=== PATIENT | male | born 1930 | race Caucasian/White ===

== ENCOUNTER 2018-09-30 20:25 | Inpatient (IN) ==
[2018-09-30] MEDS ORDERED: Isovue-370 500 ML BOTTLE IVP ONE (22:10)
[2018-09-30] MEDS ORDERED: 0.9 % Sodium Chloride 1,000 ML IVC SCH (22:15)
[2018-09-30 22:26] LABS: Bilirubin,Urine Large (Negative); Blood,Urine Negative (Negative); Clarity,Urine Clear (Clear); Color,Urine Dark Yellow (Yellow); Glucose,Urine (UA) Normal (Normal); Ketones,Urine Negative (Negative); Leukocyte Esterase,Urine Trace (Negative); Nitrite,Urine Positive (Negative); Protein,Urine Negative (Neg-Trace); Specific Gravity,Urine 1.013 (1.010-1.025)
[2018-09-30 22:27] LABS: Bacteria,Urine None Seen per hpf (None-Few); Hyaline Casts,Urine None Seen per lpf (None-Few); RBC,Urine 0-3 per hpf (0-3); Squamous Epithelial Cell,Urine Few per lpf (None-Few); WBC,Urine 0-3 per hpf (0-3)
[2018-09-30 22:53] LABS: Basophils # 0.1 K/mcL (0.0-0.2); Basophils % 0.7 %; Eosinophils # 0.4 K/mcL (0.0-0.6); Eosinophils % 3.7 %; Hematocrit 38.9 % (37.5-50.1); Hemoglobin 12.4 g/dL (12.9-16.9); Immature Granulocytes % 0.8 % (0-4); Lymphocytes # 1.9 K/mcL (0.6-4.6); Lymphocytes % 19.9 %; Mean Corpuscular HGB Conc 31.9 g/dL (31.6-35.5); Mean Corpuscular Hemoglobin 28.5 pg (28.0-33.3); Mean Corpuscular Volume 89.4 fL (83.0-100.0); Mean Platelet Volume 11.1 fL (9.4-12.4); Monocytes # 0.7 K/mcL (0.0-1.3); Monocytes % 7.2 %; Neutrophils # 6.4 K/mcL (1.6-8.9); Platelet Count 290 K/mcL (140-400); Red Blood Count 4.35 M/mcL (4.19-5.50); Red Cell Distribution Width 17.7 % (11.5-14.5); Segmented Neutrophils % 67.7 %; White Blood Count 9.5 K/mcL (4.3-11.1)
[2018-09-30 23:00] LABS: INR 1.2; Prothrombin Time 13.2 Seconds (9.4-12.1)
[2018-09-30 23:08] LABS: Albumin 3.6 g/dL (3.5-5.7); Albumin/Globulin Ratio 1.5 (1.1-2.2); Bilirubin,Direct 7.8 mg/dL (0.0-0.2); Bilirubin,Indirect 4.8 mg/dL (0.0-1.2); Bilirubin,Total 12.6 mg/dL (0.3-1.0); Calcium 8.9 mg/dL (8.6-10.3); Globulin 2.4 g/dL (2.4-3.5); Potassium 3.2 mEq/L (3.5-5.1)
[2018-10-01] MEDS ORDERED: Ondansetron 4 MG/2 ML VIAL IVP PRN (03:41)
[2018-10-01] MEDS ORDERED: Ipratropium/Albuterol Neb 3 ML IH PRN (03:43)
[2018-10-01] MEDS ORDERED: *HR* Dextrose 50 % in Water (Syg) 50 ML SYRINGE IVP PRN (03:43)
[2018-10-01] MEDS ORDERED: Dextrose Gel 15 GM/37.5 ML TUBE PO PRN ×2 (03:43)
[2018-10-01] MEDS ORDERED: Ringers Solution, Lactated 1,000 ML IVC SCH (03:45)
[2018-10-01 04:47] LABS: Magnesium 2.1 mg/dL (1.6-2.6)
[2018-10-01 04:48] LABS: Albumin 3.3 g/dL (3.5-5.7); Albumin/Globulin Ratio 1.4 (1.1-2.2); Bilirubin,Direct 8.3 mg/dL (0.0-0.2); Bilirubin,Indirect 5.1 mg/dL (0.0-1.2); Bilirubin,Total 13.4 mg/dL (0.3-1.0); Calcium 8.8 mg/dL (8.6-10.3); Globulin 2.4 g/dL (2.4-3.5); Potassium 3.1 mEq/L (3.5-5.1); Total Protein 5.7 g/dL (6.4-8.9)
[2018-10-01 05:10] LABS: Hepatitis B Surface Antigen Nonreactive (Nonreactive)
[2018-10-01 05:38] LABS: Hepatitis C Virus Antibody Nonreactive (Nonreactive)
[2018-10-01 05:39] LABS: Hepatitis B Core IgM Nonreactive (Nonreactive)
[2018-10-01 05:40] LABS: Hepatitis A Antibody IgM Nonreactive (Nonreactive)
[2018-10-01] MEDS ORDERED: Potassium Chloride Elixir 20 MEQ/15 ML UDC PO ONE (05:52)
[2018-10-01] MEDS ORDERED: *HR* Heparin 5,000 UNIT/ML VIAL SQ SCH (06:00)
[2018-10-01] MEDS: Insulin LISPRO 300 UNITS/3 ML VIAL SQ SCH ×3 (06:20→18:10)
[2018-10-01 08:14] LABS: Estimated Average Glucose 160 mg/dl
[2018-10-01] MEDS: Budesonide/Formoterol 160/4.5 1 PUFF INH IH SCH ×2 (08:14→20:12)
[2018-10-01] MEDS: Tiotropium 18 MCG inhalation IH SCH (08:21)
[2018-10-01] MEDS: Cholecalciferol (D-3) 1,000 UNIT (25MCG) TABLET PO SCH (08:31)
[2018-10-01] MEDS: Loratadine 10 MG TABLET PO SCH (08:31)
[2018-10-01] MEDS: Pyridoxine (B-6) 50 MG TABLET PO SCH (08:31)
[2018-10-01] MEDS: Multivit/Ca/Min/Fe/FA 1 TAB TABLET PO SCH (08:31)
[2018-10-01] MEDS: Fluticasone Propionate Nasal 50 MCG/SPRAY BOTTLE NS SCH (08:32)
[2018-10-01] MEDS: D5% in Lactated Ringers 1,000 ML IVC SCH (09:13)
[2018-10-01] MEDS ORDERED: Gadolinium Contrast Agent (WT Based) IV PRN (09:17)
[2018-10-02] MEDS: Insulin LISPRO 300 UNITS/3 ML VIAL SQ SCH ×4 (01:50→17:13)
[2018-10-02] MEDS: D5% in Lactated Ringers 1,000 ML IVC SCH (06:03)
[2018-10-02] MEDS: Budesonide/Formoterol 160/4.5 1 PUFF INH IH SCH ×2 (07:20→23:57)
[2018-10-02] MEDS: Tiotropium 18 MCG inhalation IH SCH (07:20)
[2018-10-02] MEDS: Fluticasone Propionate Nasal 50 MCG/SPRAY BOTTLE NS SCH (08:11)
[2018-10-02] MEDS: Loratadine 10 MG TABLET PO SCH (08:11)
[2018-10-02] MEDS: Pyridoxine (B-6) 50 MG TABLET PO SCH (08:15)
[2018-10-02] MEDS: Multivit/Ca/Min/Fe/FA 1 TAB TABLET PO SCH (08:15)
[2018-10-02] MEDS: Cholecalciferol (D-3) 1,000 UNIT (25MCG) TABLET PO SCH (08:15)
[2018-10-02 08:20] LABS: Alanine Aminotransferase 263 Units/L (7-52); Albumin/Globulin Ratio 1.3 (1.1-2.2); Alkaline Phosphatase 801 Units/L (34-104); Aspartate Amino Transferase 301 Units/L (13-39); BUN/Creatinine Ratio 14 (6-26); Bilirubin,Total 14.8 mg/dL (0.3-1.0); Blood Urea Nitrogen 16 mg/dL (8-23); Calcium 8.6 mg/dL (8.6-10.3); Carbon Dioxide 30 mEq/L (23-29); Chloride 99 mEq/L (98-107); Globulin 2.4 g/dL (2.4-3.5); Glucose 146 mg/dL (70-105); Magnesium 2.3 mg/dL (1.6-2.6); Osmolality,Calculated 298 (280-300); Phosphorous 2.1 mg/dL (2.7-4.5); Potassium 3.5 mEq/L (3.5-5.1); Sodium 142 mEq/L (136-145); Total Protein 5.4 g/dL (6.4-8.9); eGFR For African Americans > 60 (> 60); eGFR For Non-African Americans 59 (> 60)
[2018-10-02] MEDS ORDERED: *HR* Propofol 200 MG/20 ML VIAL IVP ONE ×2 (12:30→21:01)
[2018-10-02] MEDS ORDERED: *HR* FentaNYL (PF) 100 MCG/2 ML VIAL ONE ×2 (12:30→21:01)
[2018-10-02] MEDS ORDERED: EPHEDrine 50 MG/ML VIAL ONE (12:57)
[2018-10-02] MEDS: Ringers Solution, Lactated 1,000 ML IVC SCH (13:07)
[2018-10-02] MEDS ORDERED: Isovue-370 500 ML BOTTLE PO ONE (16:55)
[2018-10-02] MEDS ORDERED: CefOXitin 1,000 MG VIAL ONE (18:34)
[2018-10-02] MEDS ORDERED: *HR* Cisatracurium 10 MG/5 ML VIAL IV ONE ×2 (20:57→21:59)
[2018-10-02] MEDS ORDERED: Lidocaine -MPF 2% 2 ML VIAL ONE (21:02)
[2018-10-02] MEDS ORDERED: *HR* Succinylcholine 200 MG/10 ML VIAL IVP ONE (21:02)
[2018-10-02] MEDS ORDERED: *HR* PHENYLEPHRINE 1,000 MCG/10 ML SYRINGE IVP ONE (21:23)
[2018-10-02] MEDS ORDERED: cefOXitin 2,000 MG in Water for inj. (sterile) 20 ML IVP ONE (21:30)
[2018-10-02] MEDS ORDERED: *HR* Phenylephrine 10 MG/ML VIAL ONE (23:31)
[2018-10-03] MEDS ORDERED: cefOXitin 2,000 MG in Water for inj. (sterile) 20 ML IVP ONE (00:15)
[2018-10-03] MEDS ORDERED: Albumin Human 5% 25.0 GM/500 ML VIAL ONE (00:17)
[2018-10-03] MEDS ORDERED: CefOXitin 2,000 MG VIAL ONE (00:18)
[2018-10-03] MEDS ORDERED: CefOXitin 1,000 MG VIAL ONE (00:20)
[2018-10-03] MEDS ORDERED: Dexamethasone 4 MG/ML VIAL ONE (00:29)
[2018-10-03] MEDS ORDERED: Ondansetron 4 MG/2 ML VIAL ONE (00:29)
[2018-10-03] MEDS ORDERED: Artificial Tears SOLN 15 ML BOTTLE BOTH EYES PRN (01:19)
[2018-10-03] MEDS ORDERED: 0.9 % Sodium Chloride 1,000 ML IVC ONE (01:22)
[2018-10-03] MEDS: FentaNYL (PF) 1,000 MCG in 0.9 % Sodium Chloride 80 ML IVC SCH ×4 (02:00→16:05)
[2018-10-03 02:29] LABS: Basophils # 0.1 K/mcL (0.0-0.2); Basophils % 0.3 %; Eosinophils % 0.2 %; Hematocrit 31.7 % (37.5-50.1); Immature Granulocytes % 0.7 % (0-4); Lymphocytes # 0.6 K/mcL (0.6-4.6); Lymphocytes % 3.5 %; Mean Corpuscular HGB Conc 31.2 g/dL (31.6-35.5); Mean Corpuscular Hemoglobin 29.4 pg (28.0-33.3); Mean Corpuscular Volume 94.1 fL (83.0-100.0); Mean Platelet Volume 11.6 fL (9.4-12.4); Monocytes # 0.9 K/mcL (0.0-1.3); Monocytes % 5.1 %; Neutrophils # 16.6 K/mcL (1.6-8.9); Platelet Count 298 K/mcL (140-400); Red Blood Count 3.37 M/mcL (4.19-5.50); Red Cell Distribution Width 18.2 % (11.5-14.5); Segmented Neutrophils % 90.2 %
[2018-10-03 02:31] LABS: Hemoglobin 9.9 g/dL (12.9-16.9); White Blood Count 18.4 K/mcL (4.3-11.1)
[2018-10-03 02:37] LABS: ABG Base Excess 4 mEq/L (-2 to 3); ABG HCO3 29 mEq/L (21-27); ABG Oxygen Saturation 100 % (95-98); ABG PCO2 41 mmHg (35-45); ABG PH 7.45 pH Units (7.32-7.45); ABG PO2 515 mmHg (85-104); ABG TCO2 30 mEq/L (20-26); Blood Gas VT 500 cc
[2018-10-03 02:42] LABS: INR 1.2
[2018-10-03 02:44] LABS: Activated Partial Thrombo Time 33.8 Seconds (26.0-36.0)
[2018-10-03 02:49] LABS: Alanine Aminotransferase 309 Units/L (7-52); Albumin 3.2 g/dL (3.5-5.7); Albumin/Globulin Ratio 1.7 (1.1-2.2); Alkaline Phosphatase 637 Units/L (34-104); Aspartate Amino Transferase 368 Units/L (13-39); BUN/Creatinine Ratio 11 (6-26); Bilirubin,Direct 8.7 mg/dL (0.0-0.2); Bilirubin,Indirect 4.9 mg/dL (0.0-1.2); Bilirubin,Total 13.6 mg/dL (0.3-1.0); Blood Urea Nitrogen 14 mg/dL (8-23); Calcium 8.3 mg/dL (8.6-10.3); Carbon Dioxide 26 mEq/L (23-29); Chloride 104 mEq/L (98-107); Globulin 1.9 g/dL (2.4-3.5); Glucose 215 mg/dL (70-105); Osmolality,Calculated 295 (280-300); Potassium 3.5 mEq/L (3.5-5.1); Sodium 139 mEq/L (136-145); Total Protein 5.1 g/dL (6.4-8.9); eGFR For African Americans > 60 (> 60); eGFR For Non-African Americans 51 (> 60)
[2018-10-03 02:50] LABS: BUN/Creatinine Ratio 10 (6-26); Blood Urea Nitrogen 14 mg/dL (8-23); Calcium 8.4 mg/dL (8.6-10.3); Carbon Dioxide 27 mEq/L (23-29); Chloride 103 mEq/L (98-107); Glucose 215 mg/dL (70-105); Magnesium 1.9 mg/dL (1.6-2.6); Osmolality,Calculated 295 (280-300); Phosphorous 2.3 mg/dL (2.7-4.5); Potassium 3.5 mEq/L (3.5-5.1); Sodium 139 mEq/L (136-145); eGFR For African Americans > 60 (> 60); eGFR For Non-African Americans 50 (> 60)
[2018-10-03] MEDS: D5% in Lactated Ringers 1,000 ML IVC SCH (03:00)
[2018-10-03] MEDS: Norepinephrine 4 MG in D5% in Water 250 ML IVC SCH ×3 (03:07→18:43)
[2018-10-03] MEDS: 0.9 % Sodium Chloride 1,000 ML IVC SCH ×3 (03:21→22:20)
[2018-10-03] MEDS: Insulin LISPRO 300 UNITS/3 ML VIAL SQ SCH ×5 (03:21→21:12)
[2018-10-03] MEDS: Artificial Tears SOLN 15 ML BOTTLE BOTH EYES SCH ×5 (03:22→21:04)
[2018-10-03] MEDS: Budesonide/Formoterol 160/4.5 1 PUFF INH IH SCH ×2 (07:43→20:11)
[2018-10-03] MEDS: Tiotropium 18 MCG inhalation IH SCH (07:45)
[2018-10-03] MEDS: Piperacillin/Tazobactam 3.375 GM in 0.9 % Sodium Chloride Mini Bag 100 ML IVPB SCH ×2 (09:17→16:55)
[2018-10-03] MEDS: Chlorhexidine Rinse 15 ML MOUTHWASH MM SCH ×2 (09:18→21:12)
[2018-10-03] MEDS: Pantoprazole 40 MG VIAL IVP SCH (09:18)
[2018-10-03] MEDS: Multivit/Ca/Min/Fe/FA 1 TAB TABLET PO SCH (09:25)
[2018-10-03] MEDS: Loratadine 10 MG TABLET PO SCH (09:25)
[2018-10-03] MEDS: Fluticasone Propionate Nasal 50 MCG/SPRAY BOTTLE NS SCH (09:25)
[2018-10-03] MEDS: Cholecalciferol (D-3) 1,000 UNIT (25MCG) TABLET PO SCH (09:26)
[2018-10-03] MEDS: Ringers Solution, Lactated 1,000 ML IVC SCH (09:26)
[2018-10-03] MEDS: Pyridoxine (B-6) 50 MG TABLET PO SCH (09:26)
[2018-10-03] MEDS: *HR* Heparin 5,000 UNIT/ML VIAL SQ SCH (17:06)
[2018-10-04] MEDS: Insulin LISPRO 300 UNITS/3 ML VIAL SQ SCH ×7 (01:29→23:23)
[2018-10-04] MEDS: Artificial Tears SOLN 15 ML BOTTLE BOTH EYES SCH ×5 (01:29→15:48)
[2018-10-04] MEDS: Piperacillin/Tazobactam 3.375 GM in 0.9 % Sodium Chloride Mini Bag 100 ML IVPB SCH ×4 (01:30→23:26)
[2018-10-04] MEDS: Norepinephrine 4 MG in D5% in Water 250 ML IVC SCH ×2 (01:48→09:20)
[2018-10-04 04:11] LABS: Folate 18.7 ng/mL (3.0-16.0)
[2018-10-04 04:26] LABS: Carcinoembryonic Antigen 3.2 ng/mL (Less than 5.0); Ferritin 569 ng/mL (20-250); Iron < 10 mcg/dL (65-175); Transferrin 116 mg/dL (203-362)
[2018-10-04 04:58] LABS: ABG Base Excess 1 mEq/L (-2 to 3); ABG HCO3 26 mEq/L (21-27); ABG Oxygen Saturation 93 % (95-98); ABG PCO2 43 mmHg (35-45); ABG PH 7.39 pH Units (7.32-7.45); ABG PO2 66 mmHg (85-104); ABG TCO2 27 mEq/L (20-26); Blood Gas Modality PRVC; Blood Gas VT 500 cc
[2018-10-04] MEDS: *HR* Heparin 5,000 UNIT/ML VIAL SQ SCH ×2 (05:21→17:23)
[2018-10-04 06:58] LABS: Monocytes % 5.5 %
[2018-10-04 06:59] LABS: Basophils # 0.1 K/mcL (0.0-0.2); Basophils % 0.3 %; Eosinophils # 0.4 K/mcL (0.0-0.6); Eosinophils % 1.3 %; Hematocrit 29.9 % (37.5-50.1); Hemoglobin 8.9 g/dL (12.9-16.9); Immature Granulocytes % 1.4 % (0-4); Lymphocytes # 2.4 K/mcL (0.6-4.6); Mean Corpuscular HGB Conc 29.8 g/dL (31.6-35.5); Mean Corpuscular Hemoglobin 29.7 pg (28.0-33.3); Mean Corpuscular Volume 99.7 fL (83.0-100.0); Mean Platelet Volume 11.3 fL (9.4-12.4); Monocytes # 1.7 K/mcL (0.0-1.3); Neutrophils # 25.4 K/mcL (1.6-8.9); Platelet Count 354 K/mcL (140-400); Red Cell Distribution Width 17.3 % (11.5-14.5); Segmented Neutrophils % 83.5 %
[2018-10-04 07:15] LABS: Albumin 2.5 g/dL (3.5-5.7); Albumin/Globulin Ratio 1.3 (1.1-2.2); Bilirubin,Direct 4.2 mg/dL (0.0-0.2); Bilirubin,Indirect 2.3 mg/dL (0.0-1.2); Bilirubin,Total 6.5 mg/dL (0.3-1.0); Calcium 7.3 mg/dL (8.6-10.3); Potassium 3.2 mEq/L (3.5-5.1); Total Protein 4.5 g/dL (6.4-8.9)
[2018-10-04] MEDS: Budesonide/Formoterol 160/4.5 1 PUFF INH IH SCH ×2 (07:20→21:14)
[2018-10-04 07:22] LABS: White Blood Count 30.4 K/mcL (4.3-11.1)
[2018-10-04 07:27] LABS: Platelet Estimate Normal (Normal)
[2018-10-04] MEDS: Tiotropium 18 MCG inhalation IH SCH (07:55)
[2018-10-04] MEDS ORDERED: Potassium Chloride 40 MEQ, Lidocaine 1% 2 ML in D5% in Water 500 ML IVPB ONE (08:17)
[2018-10-04] MEDS: 0.9 % Sodium Chloride 1,000 ML IVC SCH ×3 (08:23→22:28)
[2018-10-04] MEDS: Pantoprazole 40 MG VIAL IVP SCH (08:24)
[2018-10-04] MEDS: Chlorhexidine Rinse 15 ML MOUTHWASH MM SCH (08:24)
[2018-10-04] MEDS: Cholecalciferol (D-3) 1,000 UNIT (25MCG) TABLET PO SCH (11:31)
[2018-10-04] MEDS: Pyridoxine (B-6) 50 MG TABLET PO SCH (11:31)
[2018-10-04] MEDS: Multivit/Ca/Min/Fe/FA 1 TAB TABLET PO SCH (11:31)
[2018-10-04] MEDS: Loratadine 10 MG TABLET PO SCH (11:31)
[2018-10-04] MEDS: Fluticasone Propionate Nasal 50 MCG/SPRAY BOTTLE NS SCH (11:39)
[2018-10-04] MEDS: *HR* FentaNYL (PF) 100 MCG/2 ML VIAL IVP SCH ×2 (17:19→18:01)
[2018-10-04] MEDS ORDERED: *HR* FentaNYL (PF) 100 MCG/2 ML VIAL IVP SCH (18:45)
[2018-10-04] MEDS: *HR* FentaNYL (PF) 100 MCG/2 ML VIAL IVP PRN ×2 (19:58→22:24)
[2018-10-05] MEDS: *HR* FentaNYL (PF) 100 MCG/2 ML VIAL IVP PRN ×9 (01:02→23:05)
[2018-10-05 04:10] LABS: Hemoglobin 8.3 g/dL (12.9-16.9)
[2018-10-05 04:11] LABS: Basophils # 0.1 K/mcL (0.0-0.2); Basophils % 0.3 %; Eosinophils # 0.1 K/mcL (0.0-0.6); Eosinophils % 0.4 %; Hematocrit 28.1 % (37.5-50.1); Immature Granulocytes % 1.9 % (0-4); Lymphocytes # 1.6 K/mcL (0.6-4.6); Lymphocytes % 5.9 %; Mean Corpuscular HGB Conc 29.5 g/dL (31.6-35.5); Mean Corpuscular Hemoglobin 29.5 pg (28.0-33.3); Mean Platelet Volume 10.8 fL (9.4-12.4); Monocytes # 1.3 K/mcL (0.0-1.3); Monocytes % 4.7 %; Platelet Count 331 K/mcL (140-400); Red Blood Count 2.81 M/mcL (4.19-5.50); Red Cell Distribution Width 16.8 % (11.5-14.5); Segmented Neutrophils % 86.8 %
[2018-10-05 04:20] LABS: Neutrophils # 23.4 K/mcL (1.6-8.9)
[2018-10-05 04:33] LABS: Calcium 7.4 mg/dL (8.6-10.3); Potassium 3.7 mEq/L (3.5-5.1)
[2018-10-05] MEDS: Insulin LISPRO 300 UNITS/3 ML VIAL SQ SCH ×5 (04:34→19:45)
[2018-10-05] MEDS: *HR* Heparin 5,000 UNIT/ML VIAL SQ SCH ×2 (05:15→18:06)
[2018-10-05 05:21] LABS: Anisocytosis 1+ (Not Present); Platelet Estimate Normal (Normal); Toxic Granulation Present (Not Present)
[2018-10-05] MEDS: Cholecalciferol (D-3) 1,000 UNIT (25MCG) TABLET PO SCH (07:17)
[2018-10-05] MEDS: Piperacillin/Tazobactam 3.375 GM in 0.9 % Sodium Chloride Mini Bag 100 ML IVPB SCH ×2 (07:19→16:14)
[2018-10-05] MEDS: Pantoprazole 40 MG VIAL IVP SCH (07:19)
[2018-10-05] MEDS: Fluticasone Propionate Nasal 50 MCG/SPRAY BOTTLE NS SCH (07:20)
[2018-10-05] MEDS: Budesonide/Formoterol 160/4.5 1 PUFF INH IH SCH ×2 (07:44→20:10)
[2018-10-05] MEDS: Tiotropium 18 MCG inhalation IH SCH (07:46)
[2018-10-05] MEDS: 0.9 % Sodium Chloride 1,000 ML IVC SCH ×2 (08:36→18:43)
[2018-10-05] MEDS ORDERED: Potassium Chloride 40 MEQ, Lidocaine 1% 2 ML in D5% in Water 500 ML IVPB ONE (16:04)
[2018-10-06] MEDS: Insulin LISPRO 300 UNITS/3 ML VIAL SQ SCH ×6 (00:08→20:59)
[2018-10-06] MEDS: Piperacillin/Tazobactam 3.375 GM in 0.9 % Sodium Chloride Mini Bag 100 ML IVPB SCH ×3 (00:08→16:14)
[2018-10-06] MEDS: *HR* FentaNYL (PF) 100 MCG/2 ML VIAL IVP PRN ×7 (03:51→21:07)
[2018-10-06 04:21] LABS: Monocytes % 5.8 %
[2018-10-06 04:22] LABS: Basophils # 0.1 K/mcL (0.0-0.2); Basophils % 0.3 %; Eosinophils # 0.4 K/mcL (0.0-0.6); Eosinophils % 2.2 %; Hematocrit 24.5 % (37.5-50.1); Hemoglobin 7.3 g/dL (12.9-16.9); Immature Granulocytes % 2.1 % (0-4); Lymphocytes % 5.9 %; Mean Corpuscular HGB Conc 29.8 g/dL (31.6-35.5); Mean Corpuscular Hemoglobin 29.8 pg (28.0-33.3); Mean Platelet Volume 10.5 fL (9.4-12.4); Platelet Count 365 K/mcL (140-400); Red Blood Count 2.45 M/mcL (4.19-5.50); Red Cell Distribution Width 17.2 % (11.5-14.5); Segmented Neutrophils % 83.7 %; White Blood Count 17.5 K/mcL (4.3-11.1)
[2018-10-06 04:36] LABS: BUN/Creatinine Ratio 18 (6-26); Blood Urea Nitrogen 21 mg/dL (8-23); Calcium 7.7 mg/dL (8.6-10.3); Carbon Dioxide 23 mEq/L (23-29); Chloride 116 mEq/L (98-107); Glucose 131 mg/dL (70-105); Osmolality,Calculated 309 (280-300); Potassium 3.4 mEq/L (3.5-5.1); Sodium 147 mEq/L (136-145); eGFR For African Americans > 60 (> 60); eGFR For Non-African Americans 60 (> 60)
[2018-10-06] MEDS: 0.9 % Sodium Chloride 1,000 ML IVC SCH (04:42)
[2018-10-06 04:59] LABS: Neutrophils # 14.7 K/mcL (1.6-8.9)
[2018-10-06] MEDS: *HR* Heparin 5,000 UNIT/ML VIAL SQ SCH ×2 (05:13→18:56)
[2018-10-06 06:35] LABS: Anisocytosis 2+ (Not Present); Hypochromasia Present (Not Present)
[2018-10-06 06:36] LABS: Microcytosis Present (Not Present); Platelet Estimate Normal (Normal)
[2018-10-06] MEDS: Budesonide/Formoterol 160/4.5 1 PUFF INH IH SCH ×2 (07:39→20:16)
[2018-10-06] MEDS: Fluticasone Propionate Nasal 50 MCG/SPRAY BOTTLE NS SCH (08:23)
[2018-10-06] MEDS: Pantoprazole 40 MG VIAL IVP SCH (08:29)
[2018-10-06] MEDS ORDERED: D10% in Water 500 ML IVC PRN ×2 (09:08→19:18)
[2018-10-06] MEDS: Cholecalciferol (D-3) 1,000 UNIT (25MCG) TABLET PO SCH (09:36)
[2018-10-06] MEDS ORDERED: Ringers Solution, Lactated 1,000 ML IVC SCH (09:45)
[2018-10-06 10:05] LABS: Albumin 2.3 g/dL (3.5-5.7); Bilirubin,Direct 4.6 mg/dL (0.0-0.2); Bilirubin,Indirect 1.8 mg/dL (0.0-1.2); Bilirubin,Total 6.4 mg/dL (0.3-1.0); Globulin 2.4 g/dL (2.4-3.5); Total Protein 4.7 g/dL (6.4-8.9)
[2018-10-06 12:06] LABS: Magnesium 2.2 mg/dL (1.6-2.6); Phosphorous 2.5 mg/dL (2.7-4.5)
[2018-10-06] MEDS: Tiotropium 18 MCG inhalation IH SCH (12:09)
[2018-10-06] MEDS ORDERED: Potassium Phosphate 44 MEQ in 0.9 % Sodium Chloride 250 ML IVPB PRN (14:14)
[2018-10-06] MEDS ORDERED: Calcium Gluconate 1gm/50mL 1 GM/50 ML BAG IVPB PRN ×2 (14:14→19:18)
[2018-10-06] MEDS ORDERED: Clinimix E 5%-20% SOLUTION 2,000 ML, Parenteral Amino Acid 10% 0 ML with MVI, adult wi... IVC SCH (17:00)
[2018-10-06] MEDS ORDERED: Clinimix E 5%-15% SOLUTION 2,000 ML with MVI, adult with vitamin K 10 ML IVC SCH ×2 (17:00→19:18)
[2018-10-06 17:56] LABS: Hematocrit 24.5 % (37.5-50.1); Hemoglobin 7.2 g/dL (12.9-16.9)
[2018-10-06] MEDS ORDERED: *HR* Dextrose 50 % in Water (Syg) 50 ML SYRINGE IVP PRN (19:18)
[2018-10-06] MEDS ORDERED: Dextrose Gel 15 GM/37.5 ML TUBE PO PRN ×2 (19:18)
[2018-10-06] MEDS ORDERED: Ipratropium/Albuterol Neb 3 ML IH PRN (19:18)
[2018-10-06] MEDS: Ringers Solution, Lactated 1,000 ML IVC SCH (21:35)
[2018-10-07] MEDS: Piperacillin/Tazobactam 3.375 GM in 0.9 % Sodium Chloride Mini Bag 100 ML IVPB SCH ×3 (00:35→15:20)
[2018-10-07] MEDS: *HR* FentaNYL (PF) 100 MCG/2 ML VIAL IVP PRN ×7 (00:44→14:55)
[2018-10-07] MEDS: Insulin LISPRO 300 UNITS/3 ML VIAL SQ SCH ×6 (00:50→20:48)
[2018-10-07 03:20] LABS: Alpha 2 Globulin (PEP) 0.86 g/dL (0.48-1.05); Beta Globulin (PEP) 0.49 g/dL (0.48-1.10)
[2018-10-07 04:54] LABS: VBG Ionized Calcium 1.19 mmol/L (1.15-1.35)
[2018-10-07 04:57] LABS: Basophils % 0.3 %; Eosinophils # 0.4 K/mcL (0.0-0.6); Eosinophils % 3.8 %; Immature Granulocytes % 4.2 % (0-4); Lymphocytes # 0.9 K/mcL (0.6-4.6); Lymphocytes % 8.8 %; Mean Corpuscular HGB Conc 29.2 g/dL (31.6-35.5); Mean Corpuscular Hemoglobin 29.2 pg (28.0-33.3); Mean Platelet Volume 10.3 fL (9.4-12.4); Monocytes # 0.7 K/mcL (0.0-1.3); Monocytes % 6.4 %; Platelet Count 406 K/mcL (140-400); Red Cell Distribution Width 17.1 % (11.5-14.5); Segmented Neutrophils % 76.5 %; White Blood Count 10.5 K/mcL (4.3-11.1)
[2018-10-07 05:08] LABS: BUN/Creatinine Ratio 20 (6-26); Blood Urea Nitrogen 21 mg/dL (8-23); Carbon Dioxide 29 mEq/L (23-29); Chloride 116 mEq/L (98-107); Glucose 192 mg/dL (70-105); Magnesium 2.4 mg/dL (1.6-2.6); Osmolality,Calculated 322 (280-300); Potassium 3.4 mEq/L (3.5-5.1); Sodium 152 mEq/L (136-145); eGFR For African Americans > 60 (> 60); eGFR For Non-African Americans > 60 (> 60)
[2018-10-07] MEDS: *HR* Heparin 5,000 UNIT/ML VIAL SQ SCH ×2 (06:14→20:45)
[2018-10-07] MEDS: Potassium Phosphate 44 MEQ in 0.9 % Sodium Chloride 250 ML IVPB PRN (06:20)
[2018-10-07] MEDS: Budesonide/Formoterol 160/4.5 1 PUFF INH IH SCH ×2 (07:19→22:14)
[2018-10-07] MEDS: Tiotropium 18 MCG inhalation IH SCH (07:21)
[2018-10-07] MEDS: Pantoprazole 40 MG VIAL IVP SCH (08:17)
[2018-10-07] MEDS: Fluticasone Propionate Nasal 50 MCG/SPRAY BOTTLE NS SCH (08:20)
[2018-10-07] MEDS: Cholecalciferol (D-3) 1,000 UNIT (25MCG) TABLET PO SCH (08:20)
[2018-10-07] MEDS ORDERED: 0.9 % Sodium Chloride 250 ML ONE (08:58)
[2018-10-07 09:21] LABS: Albumin 2.4 g/dL (3.5-5.7); Bilirubin,Direct 3.8 mg/dL (0.0-0.2); Bilirubin,Indirect 1.4 mg/dL (0.0-1.2); Bilirubin,Total 5.2 mg/dL (0.3-1.0); Globulin 2.3 g/dL (2.4-3.5); Total Protein 4.7 g/dL (6.4-8.9)
[2018-10-07 09:44] LABS: Immunoglobulin A 151 mg/dL (68-408); Immunoglobulin G 414 mg/dL (768-1632); Immunoglobulin M 164 mg/dL (35-263)
[2018-10-07 09:55] LABS: IFE Reflexed IFE Done
[2018-10-07] MEDS ORDERED: *HR* FentaNYL (PF) 100 MCG/2 ML VIAL IVP PRN (13:32)
[2018-10-07] MEDS: *HR* FentaNYL PATCH 25 MCG PATCH TD SCH (14:58)
[2018-10-07 15:19] LABS: Basophils # 0.1 K/mcL (0.0-0.2); Basophils % 0.7 %; Eosinophils # 0.3 K/mcL (0.0-0.6); Eosinophils % 3.2 %; Hematocrit 27.6 % (37.5-50.1); Hemoglobin 8.4 g/dL (12.9-16.9); Immature Granulocytes % 4.1 % (0-4); Lymphocytes # 1.3 K/mcL (0.6-4.6); Lymphocytes % 12.2 %; Mean Corpuscular HGB Conc 30.4 g/dL (31.6-35.5); Mean Corpuscular Hemoglobin 29.7 pg (28.0-33.3); Mean Corpuscular Volume 97.5 fL (83.0-100.0); Mean Platelet Volume 10.1 fL (9.4-12.4); Monocytes # 0.9 K/mcL (0.0-1.3); Monocytes % 8.5 %; Neutrophils # 7.5 K/mcL (1.6-8.9); Platelet Count 374 K/mcL (140-400); Red Blood Count 2.83 M/mcL (4.19-5.50); Red Cell Distribution Width 16.6 % (11.5-14.5); Segmented Neutrophils % 71.3 %; White Blood Count 10.4 K/mcL (4.3-11.1)
[2018-10-07 15:38] LABS: BUN/Creatinine Ratio 22 (6-26); Blood Urea Nitrogen 21 mg/dL (8-23); Carbon Dioxide 30 mEq/L (23-29); Chloride 119 mEq/L (98-107); Glucose 175 mg/dL (70-105); Osmolality,Calculated 321 (280-300); Potassium 3.4 mEq/L (3.5-5.1); Sodium 152 mEq/L (136-145); eGFR For African Americans > 60 (> 60); eGFR For Non-African Americans > 60 (> 60)
[2018-10-07] MEDS ORDERED: Furosemide 40 MG/4 ML VIAL IVP ONE (16:51)
[2018-10-07] MEDS ORDERED: Furosemide 40 MG/4 ML VIAL ONE (16:53)
[2018-10-07 16:58] LABS: ABG Base Excess 3 mEq/L (-2 to 3); ABG HCO3 28 mEq/L (21-27); ABG Oxygen Saturation 96 % (95-98); ABG PCO2 45 mmHg (35-45); ABG PH 7.41 pH Units (7.32-7.45); ABG PO2 82 mmHg (85-104); ABG TCO2 30 mEq/L (20-26)
[2018-10-07] MEDS ORDERED: Clinimix E 5%-15% SOLUTION 2,000 ML with MVI, adult with vitamin K 10 ML IVC SCH (17:00)
[2018-10-07 19:10] LABS: Magnesium 2.5 mg/dL (1.6-2.6)
[2018-10-08] MEDS: Piperacillin/Tazobactam 3.375 GM in 0.9 % Sodium Chloride Mini Bag 100 ML IVPB SCH ×4 (00:39→23:18)
[2018-10-08] MEDS: Insulin LISPRO 300 UNITS/3 ML VIAL SQ SCH ×6 (00:44→21:17)
[2018-10-08 05:13] LABS: BUN/Creatinine Ratio 20 (6-26); Blood Urea Nitrogen 20 mg/dL (8-23); Calcium 8.4 mg/dL (8.6-10.3); Carbon Dioxide 33 mEq/L (23-29); Chloride 111 mEq/L (98-107); Glucose 221 mg/dL (70-105); Magnesium 2.4 mg/dL (1.6-2.6); Osmolality,Calculated 325 (280-300); Phosphorous 2.4 mg/dL (2.7-4.5); Potassium 3.2 mEq/L (3.5-5.1); Sodium 153 mEq/L (136-145); Triglycerides 385 mg/dL (< 150); eGFR For African Americans > 60 (> 60); eGFR For Non-African Americans > 60 (> 60)
[2018-10-08 05:14] LABS: Albumin 2.5 g/dL (3.5-5.7); Bilirubin,Direct 3.6 mg/dL (0.0-0.2); Bilirubin,Indirect 1.4 mg/dL (0.0-1.2); Globulin 2.4 g/dL (2.4-3.5); Total Protein 4.9 g/dL (6.4-8.9)
[2018-10-08] MEDS: Potassium Phosphate 44 MEQ in 0.9 % Sodium Chloride 250 ML IVPB PRN (06:07)
[2018-10-08] MEDS: *HR* Heparin 5,000 UNIT/ML VIAL SQ SCH ×2 (06:13→18:06)
[2018-10-08] MEDS ORDERED: Albuterol 2.5 MG/3 ML NEBULIZER IH PRN (07:38)
[2018-10-08] MEDS: Cholecalciferol (D-3) 1,000 UNIT (25MCG) TABLET PO SCH (07:41)
[2018-10-08] MEDS: Fluticasone Propionate Nasal 50 MCG/SPRAY BOTTLE NS SCH (07:50)
[2018-10-08] MEDS: Pantoprazole 40 MG VIAL IVP SCH (07:50)
[2018-10-08 08:27] LABS: Hematocrit 29.1 % (37.5-50.1); Hemoglobin 8.8 g/dL (12.9-16.9); Mean Corpuscular HGB Conc 30.2 g/dL (31.6-35.5); Mean Corpuscular Hemoglobin 29.5 pg (28.0-33.3); Mean Corpuscular Volume 97.7 fL (83.0-100.0); Mean Platelet Volume 10.3 fL (9.4-12.4); Nucleated Red Blood Cells 0.3 /100 WBC (0); Platelet Count 439 K/mcL (140-400); Red Blood Count 2.98 M/mcL (4.19-5.50); Red Cell Distribution Width 16.5 % (11.5-14.5); White Blood Count 10.6 K/mcL (4.3-11.1)
[2018-10-08] MEDS: D5% in Water 1,000 ML IVC SCH ×2 (08:32→21:26)
[2018-10-08 09:06] LABS: Eosinophils # 1.1 K/mcL (0.0-0.6); Lymphocytes # 1.7 K/mcL (0.6-4.6); Monocytes # 0.5 K/mcL (0.0-1.3); Neutrophils # 7.3 K/mcL (1.6-8.9)
[2018-10-08 09:10] LABS: Hypochromasia Present (Not Present); Platelet Estimate Normal (Normal)
[2018-10-08 09:14] LABS: Toxic Granulation Present (Not Present)
[2018-10-08 09:15] LABS: Anisocytosis 1+ (Not Present); Poikilocytosis 1+ (Not Present); Polychromasia 1+ (Not Present)
[2018-10-08] MEDS: Tiotropium 18 MCG inhalation IH SCH (09:57)
[2018-10-08] MEDS: Budesonide/Formoterol 160/4.5 1 PUFF INH IH SCH ×2 (09:58→19:44)
[2018-10-08] MEDS: Ringers Solution, Lactated 1,000 ML IVC SCH (11:26)
[2018-10-08] MEDS ORDERED: Clinimix E 5%-15% SOLUTION 2,000 ML with MVI, adult with vitamin K 10 ML IVC SCH (17:00)
[2018-10-09] MEDS: Insulin LISPRO 300 UNITS/3 ML VIAL SQ SCH ×6 (00:39→22:23)
[2018-10-09] MEDS: Ondansetron 4 MG/2 ML VIAL IVP PRN (01:33)
[2018-10-09 03:44] LABS: Hematocrit 30.5 % (37.5-50.1); Hemoglobin 9.3 g/dL (12.9-16.9); Mean Corpuscular HGB Conc 30.5 g/dL (31.6-35.5); Mean Corpuscular Hemoglobin 29.6 pg (28.0-33.3); Mean Corpuscular Volume 97.1 fL (83.0-100.0); Mean Platelet Volume 10.2 fL (9.4-12.4); Nucleated Red Blood Cells 0.2 /100 WBC (0); Platelet Count 442 K/mcL (140-400); Red Blood Count 3.14 M/mcL (4.19-5.50); Red Cell Distribution Width 16.5 % (11.5-14.5); White Blood Count 16.5 K/mcL (4.3-11.1)
[2018-10-09 03:59] LABS: Alanine Aminotransferase 189 Units/L (7-52); Albumin 2.6 g/dL (3.5-5.7); Alkaline Phosphatase 269 Units/L (34-104); Aspartate Amino Transferase 107 Units/L (13-39); BUN/Creatinine Ratio 20 (6-26); Bilirubin,Total 4.8 mg/dL (0.3-1.0); Blood Urea Nitrogen 19 mg/dL (8-23); Calcium 8.4 mg/dL (8.6-10.3); Carbon Dioxide 31 mEq/L (23-29); Chloride 109 mEq/L (98-107); Globulin 2.6 g/dL (2.4-3.5); Glucose 204 mg/dL (70-105); Osmolality,Calculated 312 (280-300); Potassium 3.3 mEq/L (3.5-5.1); Sodium 147 mEq/L (136-145); Total Protein 5.2 g/dL (6.4-8.9); eGFR For African Americans > 60 (> 60); eGFR For Non-African Americans > 60 (> 60)
[2018-10-09 04:06] LABS: Eosinophils # 0.3 K/mcL (0.0-0.6); Monocytes # 0.7 K/mcL (0.0-1.3); Neutrophils # 12.2 K/mcL (1.6-8.9)
[2018-10-09 04:07] LABS: Anisocytosis 1+ (Not Present); Macrocytosis Present (Not Present); Platelet Estimate Normal (Normal); Polychromasia 1+ (Not Present); Smudge Cells Present (Not Present)
[2018-10-09] MEDS: *HR* Heparin 5,000 UNIT/ML VIAL SQ SCH ×2 (04:54→18:06)
[2018-10-09] MEDS ORDERED: Potassium Chloride 40 MEQ, Lidocaine 1% 2 ML in D5% in Water 500 ML IVPB ONE (07:15)
[2018-10-09] MEDS: Tiotropium 18 MCG inhalation IH SCH (07:38)
[2018-10-09] MEDS: Budesonide/Formoterol 160/4.5 1 PUFF INH IH SCH (07:38)
[2018-10-09] MEDS: Cholecalciferol (D-3) 1,000 UNIT (25MCG) TABLET PO SCH (08:08)
[2018-10-09] MEDS: Pantoprazole 40 MG VIAL IVP SCH (08:08)
[2018-10-09] MEDS: Fluticasone Propionate Nasal 50 MCG/SPRAY BOTTLE NS SCH (08:08)
[2018-10-09] MEDS: Piperacillin/Tazobactam 3.375 GM in 0.9 % Sodium Chloride Mini Bag 100 ML IVPB SCH ×2 (08:09→17:21)
[2018-10-09] MEDS: D5% in Water 1,000 ML IVC SCH ×2 (11:01→17:33)
[2018-10-09] MEDS ORDERED: Fluconazole 200 MG/100 ML 200 MG/100 ML BAG IVPB SCH (11:30)
[2018-10-09 12:03] LABS: VBG HCO3 33 mEq/L (21-27); VBG PCO2 69 mmHg (41-51); VBG PH 7.28 pH Units (7.32-7.42); VBG PO2 207 mmHg (25-50)
[2018-10-09] MEDS ORDERED: Furosemide 40 MG/4 ML VIAL IVP ONE (12:07)
[2018-10-09] MEDS: Budesonide Neb 0.25 MG/2 ML IH SCH ×2 (13:10→22:09)
[2018-10-09] MEDS: Ipratropium/Albuterol Neb 3 ML IH SCH ×4 (13:10→23:40)
[2018-10-09 13:29] LABS: ABG Base Excess 9 mEq/L (-2 to 3); ABG HCO3 37 mEq/L (21-27); ABG Oxygen Saturation 97 % (95-98); ABG PCO2 73 mmHg (35-45); ABG PH 7.31 pH Units (7.32-7.45); ABG PO2 99 mmHg (85-104); ABG TCO2 39 mEq/L (20-26)
[2018-10-09] MEDS ORDERED: Fluconazole 200 MG/100 ML 200 MG/100 ML BAG IVPB ONE (16:28)
[2018-10-09] MEDS ORDERED: Fluconazole 400 MG/200 ML 400 MG/200 ML BAG IVPB ONE (16:28)
[2018-10-09] MEDS ORDERED: Clinimix E 5%-15% SOLUTION 2,000 ML with MVI, adult with vitamin K 10 ML IVC SCH (17:00)
[2018-10-09] MEDS: Insulin DETEMIR 100 UNIT/ML X5UNITS SQ SCH (22:23)
[2018-10-10] MEDS: Piperacillin/Tazobactam 3.375 GM in 0.9 % Sodium Chloride Mini Bag 100 ML IVPB SCH ×3 (01:16→16:57)
[2018-10-10] MEDS: Insulin LISPRO 300 UNITS/3 ML VIAL SQ SCH ×6 (01:49→22:02)
[2018-10-10] MEDS: Ipratropium/Albuterol Neb 3 ML IH SCH ×6 (03:45→23:18)
[2018-10-10 04:27] LABS: ABG Base Excess 10 mEq/L (-2 to 3); ABG HCO3 36 mEq/L (21-27); ABG Oxygen Saturation 95 % (95-98); ABG PCO2 57 mmHg (35-45); ABG PH 7.41 pH Units (7.32-7.45); ABG PO2 79 mmHg (85-104); ABG TCO2 38 mEq/L (20-26)
[2018-10-10] MEDS: *HR* Heparin 5,000 UNIT/ML VIAL SQ SCH ×2 (05:15→17:23)
[2018-10-10] MEDS: D5% in Water 1,000 ML IVC SCH (05:52)
[2018-10-10 05:58] LABS: Hemoglobin 8.4 g/dL (12.9-16.9); Mean Corpuscular Hemoglobin 29.9 pg (28.0-33.3); Mean Corpuscular Volume 99.6 fL (83.0-100.0); Mean Platelet Volume 10.5 fL (9.4-12.4); Nucleated Red Blood Cells 0.2 /100 WBC (0); Platelet Count 386 K/mcL (140-400); Red Blood Count 2.81 M/mcL (4.19-5.50); Red Cell Distribution Width 16.4 % (11.5-14.5); White Blood Count 15.9 K/mcL (4.3-11.1)
[2018-10-10 06:17] LABS: BUN/Creatinine Ratio 21 (6-26); Blood Urea Nitrogen 20 mg/dL (8-23); Carbon Dioxide 36 mEq/L (23-29); Chloride 103 mEq/L (98-107); Potassium 3.4 mEq/L (3.5-5.1); Sodium 142 mEq/L (136-145); eGFR For African Americans > 60 (> 60)
[2018-10-10 06:18] LABS: Glucose 262 mg/dL (70-105); Magnesium 2.2 mg/dL (1.6-2.6); Osmolality,Calculated 306 (280-300); Phosphorous 2.7 mg/dL (2.7-4.5); eGFR For Non-African Americans > 60 (> 60)
[2018-10-10 06:24] LABS: Eosinophils # 1.3 K/mcL (0.0-0.6); Lymphocytes # 1.9 K/mcL (0.6-4.6); Monocytes # 0.6 K/mcL (0.0-1.3); Neutrophils # 11.8 K/mcL (1.6-8.9)
[2018-10-10 06:25] LABS: Platelet Estimate Normal (Normal)
[2018-10-10 06:26] LABS: Anisocytosis 1+ (Not Present); Hypochromasia Present (Not Present); Macrocytosis Present (Not Present); Polychromasia 1+ (Not Present)
[2018-10-10 06:28] LABS: Large Platelets Present (Not Present); Platelet Clumps Few (Not Present)
[2018-10-10] MEDS: Budesonide Neb 0.25 MG/2 ML IH SCH ×2 (07:36→23:11)
[2018-10-10] MEDS ORDERED: Furosemide 40 MG/4 ML VIAL IVP ONE (08:36)
[2018-10-10] MEDS: Pantoprazole 40 MG VIAL IVP SCH (08:50)
[2018-10-10] MEDS: Fluticasone Propionate Nasal 50 MCG/SPRAY BOTTLE NS SCH (08:51)
[2018-10-10] MEDS: Insulin DETEMIR 100 UNIT/ML X5UNITS SQ SCH ×3 (08:51→22:01)
[2018-10-10 10:10] LABS: Bilirubin,Urine Small (Negative); Blood,Urine Moderate (Negative); Clarity,Urine Cloudy (Clear); Color,Urine Dark Yellow (Yellow); Glucose,Urine (UA) Normal (Normal); Ketones,Urine Negative (Negative); Leukocyte Esterase,Urine Small (Negative); Nitrite,Urine Negative (Negative); Protein,Urine 30 mg/dL (Neg-Trace); Urobilinogen,Urine Normal (Normal)
[2018-10-10 10:13] LABS: Bacteria,Urine None Seen per hpf (None-Few); Hyaline Casts,Urine None Seen per lpf (None-Few); Squamous Epithelial Cell,Urine Moderate per lpf (None-Few)
[2018-10-10] MEDS ORDERED: *HR* Alteplase (Cathflo) 2 MG VIAL IVP ONE (10:46)
[2018-10-10] MEDS ORDERED: Potassium Chloride 40 MEQ, Lidocaine 1% 2 ML in D5% in Water 500 ML IVPB ONE (11:27)
[2018-10-10] MEDS: Cholecalciferol (D-3) 1,000 UNIT (25MCG) TABLET PO SCH (12:16)
[2018-10-10] MEDS: *HR* Alteplase (Cathflo) 2 MG VIAL IVP ONE ×2 (12:34→15:21)
[2018-10-10] MEDS ORDERED: D5% in Water 1,000 ML IVC SCH (14:07)
[2018-10-10] MEDS: *HR* FentaNYL PATCH 25 MCG PATCH TD SCH (14:26)
[2018-10-10] MEDS: Fluconazole 200 MG/100 ML 200 MG/100 ML BAG IVPB SCH (16:56)
[2018-10-10] MEDS ORDERED: Clinimix E 5%-15% SOLUTION 2,000 ML with MVI, adult with vitamin K 10 ML IVC SCH (17:00)
[2018-10-11] MEDS: Piperacillin/Tazobactam 3.375 GM in 0.9 % Sodium Chloride Mini Bag 100 ML IVPB SCH ×4 (00:10→23:02)
[2018-10-11] MEDS: Insulin LISPRO 300 UNITS/3 ML VIAL SQ SCH ×7 (00:23→23:19)
[2018-10-11] MEDS: Ipratropium/Albuterol Neb 3 ML IH SCH ×6 (03:52→23:43)
[2018-10-11] MEDS: *HR* Heparin 5,000 UNIT/ML VIAL SQ SCH ×2 (04:36→17:16)
[2018-10-11 05:07] LABS: Hematocrit 26.7 % (37.5-50.1); Mean Platelet Volume 10.8 fL (9.4-12.4); Nucleated Red Blood Cells 0.2 /100 WBC (0); Platelet Count 396 K/mcL (140-400); Red Blood Count 2.67 M/mcL (4.19-5.50); Red Cell Distribution Width 16.8 % (11.5-14.5); White Blood Count 16.3 K/mcL (4.3-11.1)
[2018-10-11 05:22] LABS: VBG Ionized Calcium 1.16 mmol/L (1.15-1.35)
[2018-10-11 05:26] LABS: Anisocytosis 1+ (Not Present); Eosinophils # 1.3 K/mcL (0.0-0.6); Lymphocytes # 4.6 K/mcL (0.6-4.6); Monocytes # 0.3 K/mcL (0.0-1.3); Neutrophils # 9.8 K/mcL (1.6-8.9); Platelet Estimate Normal (Normal)
[2018-10-11 05:27] LABS: Basophilic Stippling 1+ (Not Present); Carbon Dioxide 34 mEq/L (23-29); Chloride 101 mEq/L (98-107); Potassium 3.4 mEq/L (3.5-5.1); Sodium 140 mEq/L (136-145)
[2018-10-11 05:28] LABS: Alanine Aminotransferase 120 Units/L (7-52); Albumin 2.4 g/dL (3.5-5.7); Alkaline Phosphatase 227 Units/L (34-104); Aspartate Amino Transferase 65 Units/L (13-39); BUN/Creatinine Ratio 22 (6-26); Bilirubin,Direct 1.9 mg/dL (0.0-0.2); Bilirubin,Indirect 1.3 mg/dL (0.0-1.2); Bilirubin,Total 3.2 mg/dL (0.3-1.0); Blood Urea Nitrogen 21 mg/dL (8-23); Calcium 8.1 mg/dL (8.6-10.3); Globulin 2.4 g/dL (2.4-3.5); Glucose 226 mg/dL (70-105); Hypochromasia Present (Not Present); Magnesium 2.2 mg/dL (1.6-2.6); Osmolality,Calculated 300 (280-300); Phosphorous 2.5 mg/dL (2.7-4.5); Stomatocytes 1+ (Not Present); Total Protein 4.8 g/dL (6.4-8.9); eGFR For African Americans > 60 (> 60); eGFR For Non-African Americans > 60 (> 60)
[2018-10-11] MEDS: Budesonide Neb 0.25 MG/2 ML IH SCH ×2 (07:20→20:02)
[2018-10-11] MEDS ORDERED: Potassium Chloride 40 MEQ, Lidocaine 1% 2 ML in D5% in Water 500 ML IVPB ONE (07:24)
[2018-10-11] MEDS: Fluticasone Propionate Nasal 50 MCG/SPRAY BOTTLE NS SCH (08:23)
[2018-10-11] MEDS: Cholecalciferol (D-3) 1,000 UNIT (25MCG) TABLET PO SCH (09:55)
[2018-10-11] MEDS: Pantoprazole 40 MG VIAL IVP SCH (09:55)
[2018-10-11] MEDS: Insulin DETEMIR 100 UNIT/ML X5UNITS SQ SCH ×2 (10:01→20:42)
[2018-10-11] MEDS ORDERED: Furosemide 20 MG/2 ML VIAL IVP ONE (10:57)
[2018-10-11] MEDS: Fluconazole 200 MG/100 ML 200 MG/100 ML BAG IVPB SCH (15:01)
[2018-10-11] MEDS ORDERED: Clinimix E 5%-15% SOLUTION 2,000 ML with MVI, adult with vitamin K 10 ML IVC SCH (17:00)
[2018-10-12 03:22] LABS: Basophils # 0.1 K/mcL (0.0-0.2); Basophils % 0.8 %; Eosinophils # 0.8 K/mcL (0.0-0.6); Eosinophils % 5.4 %; Hematocrit 26.9 % (37.5-50.1); Hemoglobin 8.1 g/dL (12.9-16.9); Immature Granulocytes % 9.8 % (0-4); Lymphocytes # 1.7 K/mcL (0.6-4.6); Lymphocytes % 12.4 %; Mean Corpuscular HGB Conc 30.1 g/dL (31.6-35.5); Mean Corpuscular Volume 99.6 fL (83.0-100.0); Monocytes # 1.2 K/mcL (0.0-1.3); Monocytes % 8.3 %; Neutrophils # 8.9 K/mcL (1.6-8.9); Nucleated Red Blood Cells 0.1 /100 WBC (0); Platelet Count 419 K/mcL (140-400); Red Cell Distribution Width 16.8 % (11.5-14.5); Segmented Neutrophils % 63.3 %
[2018-10-12 03:38] LABS: BUN/Creatinine Ratio 22 (6-26); Blood Urea Nitrogen 22 mg/dL (8-23); Calcium 8.2 mg/dL (8.6-10.3); Carbon Dioxide 35 mEq/L (23-29); Chloride 99 mEq/L (98-107); Glucose 232 mg/dL (70-105); Magnesium 2.4 mg/dL (1.6-2.6); Osmolality,Calculated 299 (280-300); Phosphorous 2.6 mg/dL (2.7-4.5); Potassium 3.7 mEq/L (3.5-5.1); Sodium 139 mEq/L (136-145); eGFR For African Americans > 60 (> 60); eGFR For Non-African Americans > 60 (> 60)
[2018-10-12 03:51] LABS: Hypochromasia Present (Not Present); Polychromasia 1+ (Not Present)
[2018-10-12] MEDS: Ipratropium/Albuterol Neb 3 ML IH SCH ×5 (03:51→19:56)
[2018-10-12] MEDS: Insulin LISPRO 300 UNITS/3 ML VIAL SQ SCH ×5 (04:42→20:24)
[2018-10-12] MEDS: *HR* Heparin 5,000 UNIT/ML VIAL SQ SCH ×2 (05:08→17:24)
[2018-10-12] MEDS: Cholecalciferol (D-3) 1,000 UNIT (25MCG) TABLET PO SCH (09:28)
[2018-10-12] MEDS: Insulin DETEMIR 100 UNIT/ML X5UNITS SQ SCH ×2 (09:29→20:23)
[2018-10-12] MEDS: Piperacillin/Tazobactam 3.375 GM in 0.9 % Sodium Chloride Mini Bag 100 ML IVPB SCH ×2 (09:29→16:08)
[2018-10-12] MEDS: Fluticasone Propionate Nasal 50 MCG/SPRAY BOTTLE NS SCH (09:30)
[2018-10-12] MEDS: Pantoprazole 40 MG VIAL IVP SCH (09:39)
[2018-10-12] MEDS ORDERED: Furosemide 20 MG/2 ML VIAL IVP ONE (09:45)
[2018-10-12] MEDS: Budesonide Neb 0.25 MG/2 ML IH SCH ×2 (11:05→19:58)
[2018-10-12] MEDS: Ondansetron 4 MG/2 ML VIAL IVP PRN (15:05)
[2018-10-12] MEDS: Fluconazole 200 MG/100 ML 200 MG/100 ML BAG IVPB SCH (16:08)
[2018-10-12] MEDS ORDERED: Clinimix E 5%-15% SOLUTION 2,000 ML with MVI, adult with vitamin K 10 ML IVC SCH (17:00)
[2018-10-12] MEDS ORDERED: Budesonide Neb 0.5 MG/2 ML IH ONE (19:55)
[2018-10-13] MEDS: Ipratropium/Albuterol Neb 3 ML IH SCH ×7 (00:07→23:39)
[2018-10-13] MEDS: Piperacillin/Tazobactam 3.375 GM in 0.9 % Sodium Chloride Mini Bag 100 ML IVPB SCH ×3 (00:11→15:33)
[2018-10-13] MEDS: Insulin LISPRO 300 UNITS/3 ML VIAL SQ SCH ×6 (00:13→22:48)
[2018-10-13 03:31] LABS: Basophils # 0.1 K/mcL (0.0-0.2); Basophils % 0.7 %; Eosinophils # 0.6 K/mcL (0.0-0.6); Hematocrit 26.5 % (37.5-50.1); Immature Granulocytes % 8.6 % (0-4); Lymphocytes % 13.4 %; Mean Corpuscular HGB Conc 30.2 g/dL (31.6-35.5); Mean Corpuscular Hemoglobin 30.1 pg (28.0-33.3); Mean Corpuscular Volume 99.6 fL (83.0-100.0); Mean Platelet Volume 11.3 fL (9.4-12.4); Monocytes # 1.4 K/mcL (0.0-1.3); Monocytes % 9.4 %; Neutrophils # 9.6 K/mcL (1.6-8.9); Nucleated Red Blood Cells 0.1 /100 WBC (0); Platelet Count 433 K/mcL (140-400); Red Blood Count 2.66 M/mcL (4.19-5.50); Red Cell Distribution Width 17.3 % (11.5-14.5); Segmented Neutrophils % 63.9 %
[2018-10-13 03:50] LABS: BUN/Creatinine Ratio 25 (6-26); Blood Urea Nitrogen 25 mg/dL (8-23); Calcium 8.4 mg/dL (8.6-10.3); Carbon Dioxide 37 mEq/L (23-29); Chloride 101 mEq/L (98-107); Glucose 210 mg/dL (70-105); Magnesium 2.4 mg/dL (1.6-2.6); Osmolality,Calculated 301 (280-300); Potassium 3.9 mEq/L (3.5-5.1); Sodium 140 mEq/L (136-145); eGFR For African Americans > 60 (> 60); eGFR For Non-African Americans > 60 (> 60)
[2018-10-13 03:52] LABS: Platelet Estimate Normal (Normal)
[2018-10-13] MEDS: *HR* Heparin 5,000 UNIT/ML VIAL SQ SCH ×2 (04:52→17:05)
[2018-10-13] MEDS: Budesonide Neb 0.25 MG/2 ML IH SCH ×2 (07:33→19:47)
[2018-10-13] MEDS: Furosemide 20 MG/2 ML VIAL IVP SCH (08:13)
[2018-10-13] MEDS: Pantoprazole 40 MG VIAL IVP SCH (08:14)
[2018-10-13] MEDS: Insulin DETEMIR 100 UNIT/ML X5UNITS SQ SCH (08:14)
[2018-10-13] MEDS: Cholecalciferol (D-3) 1,000 UNIT (25MCG) TABLET PO SCH (08:14)
[2018-10-13] MEDS ORDERED: Furosemide 40 MG/4 ML VIAL IVP ONE (08:18)
[2018-10-13] MEDS: Fluticasone Propionate Nasal 50 MCG/SPRAY BOTTLE NS SCH (08:23)
[2018-10-13] MEDS ORDERED: Furosemide 20 MG/2 ML VIAL IVP ONE (11:29)
[2018-10-13 11:32] LABS: Alanine Aminotransferase 97 Units/L (7-52); Albumin 2.5 g/dL (3.5-5.7); Alkaline Phosphatase 211 Units/L (34-104); Aspartate Amino Transferase 63 Units/L (13-39); BUN/Creatinine Ratio 26 (6-26); Bilirubin,Total 2.4 mg/dL (0.3-1.0); Blood Urea Nitrogen 25 mg/dL (8-23); Calcium 8.6 mg/dL (8.6-10.3); Carbon Dioxide 38 mEq/L (23-29); Chloride 99 mEq/L (98-107); Globulin 2.6 g/dL (2.4-3.5); Glucose 271 mg/dL (70-105); Osmolality,Calculated 304 (280-300); Potassium 3.9 mEq/L (3.5-5.1); Sodium 140 mEq/L (136-145); Total Protein 5.1 g/dL (6.4-8.9); eGFR For African Americans > 60 (> 60); eGFR For Non-African Americans > 60 (> 60)
[2018-10-13] MEDS: *HR* FentaNYL PATCH 25 MCG PATCH TD SCH (13:01)
[2018-10-13] MEDS: Fluconazole 200 MG/100 ML 200 MG/100 ML BAG IVPB SCH (15:32)
[2018-10-13] MEDS: Ondansetron 4 MG/2 ML VIAL IVP PRN ×2 (15:32→22:46)
[2018-10-13] MEDS ORDERED: Clinimix E 5%-15% SOLUTION 2,000 ML with MVI, adult with vitamin K 10 ML IVC SCH (17:00)
[2018-10-13] MEDS ORDERED: Insulin DETEMIR 100 UNIT/ML X5UNITS SQ SCH (21:00)
[2018-10-14] MEDS: Piperacillin/Tazobactam 3.375 GM in 0.9 % Sodium Chloride Mini Bag 100 ML IVPB SCH ×3 (00:34→16:01)
[2018-10-14] MEDS: Insulin LISPRO 300 UNITS/3 ML VIAL SQ SCH ×6 (00:38→22:27)
[2018-10-14] MEDS: Ipratropium/Albuterol Neb 3 ML IH SCH ×5 (04:17→19:59)
[2018-10-14 05:44] LABS: Hematocrit 28.1 % (37.5-50.1); Hemoglobin 8.5 g/dL (12.9-16.9); Mean Corpuscular HGB Conc 30.2 g/dL (31.6-35.5); Mean Corpuscular Hemoglobin 30.5 pg (28.0-33.3); Mean Corpuscular Volume 100.7 fL (83.0-100.0); Mean Platelet Volume 11.5 fL (9.4-12.4); Nucleated Red Blood Cells 0.1 /100 WBC (0); Platelet Count 494 K/mcL (140-400); Red Blood Count 2.79 M/mcL (4.19-5.50); Red Cell Distribution Width 17.5 % (11.5-14.5); White Blood Count 17.9 K/mcL (4.3-11.1)
[2018-10-14 06:02] LABS: BUN/Creatinine Ratio 24 (6-26); Blood Urea Nitrogen 23 mg/dL (8-23); Calcium 8.9 mg/dL (8.6-10.3); Carbon Dioxide 39 mEq/L (23-29); Chloride 96 mEq/L (98-107); Glucose 203 mg/dL (70-105); Magnesium 2.5 mg/dL (1.6-2.6); Osmolality,Calculated 303 (280-300); Phosphorous 3.2 mg/dL (2.7-4.5); Potassium 3.8 mEq/L (3.5-5.1); Sodium 142 mEq/L (136-145); eGFR For African Americans > 60 (> 60); eGFR For Non-African Americans > 60 (> 60)
[2018-10-14] MEDS: *HR* Heparin 5,000 UNIT/ML VIAL SQ SCH ×2 (06:07→17:11)
[2018-10-14 06:09] LABS: Eosinophils # 0.7 K/mcL (0.0-0.6); Lymphocytes # 2.2 K/mcL (0.6-4.6); Monocytes # 0.7 K/mcL (0.0-1.3)
[2018-10-14 06:10] LABS: Large Platelets Present (Not Present); Reactive Lymphocytes Present (Not Present)
[2018-10-14 06:11] LABS: Hypochromasia Present (Not Present); Microcytosis Present (Not Present); Polychromasia 1+ (Not Present)
[2018-10-14] MEDS: Ondansetron 4 MG/2 ML VIAL IVP PRN ×2 (06:55→22:30)
[2018-10-14] MEDS: Budesonide Neb 0.25 MG/2 ML IH SCH ×2 (07:41→19:59)
[2018-10-14] MEDS: Insulin DETEMIR 100 UNIT/ML X5UNITS SQ SCH ×2 (08:30→22:29)
[2018-10-14] MEDS: Cholecalciferol (D-3) 1,000 UNIT (25MCG) TABLET PO SCH (08:31)
[2018-10-14] MEDS: Pantoprazole 40 MG VIAL IVP SCH (08:31)
[2018-10-14] MEDS: Fluticasone Propionate Nasal 50 MCG/SPRAY BOTTLE NS SCH (08:31)
[2018-10-14] MEDS: Furosemide 20 MG/2 ML VIAL IVP SCH (08:31)
[2018-10-14] MEDS ORDERED: Metoclopramide 10 MG/2 ML VIAL IVP ONE (08:55)
[2018-10-14] MEDS ORDERED: *HR* Alteplase (Cathflo) 2 MG VIAL IVP ONE (09:44)
[2018-10-14] MEDS: Ondansetron ODT 4 MG TAB.RAPDIS SL SCH ×4 (11:41→22:48)
[2018-10-14] MEDS: Fluconazole 200 MG/100 ML 200 MG/100 ML BAG IVPB SCH (16:02)
[2018-10-14] MEDS ORDERED: Clinimix E 5%-15% SOLUTION 2,000 ML with MVI, adult with vitamin K 10 ML, Trace Eleme... IVC SCH (17:00)
[2018-10-14] MEDS ORDERED: Bisacodyl 10 MG RECTAL SUPPOSITORY RC SCH (21:00)
[2018-10-15] MEDS: Ipratropium/Albuterol Neb 3 ML IH SCH ×5 (00:23→15:51)
[2018-10-15] MEDS: Piperacillin/Tazobactam 3.375 GM in 0.9 % Sodium Chloride Mini Bag 100 ML IVPB SCH ×2 (00:37→08:37)
[2018-10-15] MEDS: Ondansetron ODT 4 MG TAB.RAPDIS SL SCH ×5 (00:40→12:08)
[2018-10-15] MEDS: Insulin LISPRO 300 UNITS/3 ML VIAL SQ SCH ×5 (00:48→15:46)
[2018-10-15 03:53] LABS: Basophils # 0.1 K/mcL (0.0-0.2); Basophils % 0.8 %; Eosinophils # 0.7 K/mcL (0.0-0.6); Eosinophils % 3.8 %; Hematocrit 26.1 % (37.5-50.1); Immature Granulocytes % 4.6 % (0-4); Lymphocytes # 2.2 K/mcL (0.6-4.6); Lymphocytes % 12.3 %; Mean Corpuscular HGB Conc 30.7 g/dL (31.6-35.5); Mean Corpuscular Hemoglobin 30.5 pg (28.0-33.3); Mean Corpuscular Volume 99.6 fL (83.0-100.0); Mean Platelet Volume 11.1 fL (9.4-12.4); Monocytes # 1.6 K/mcL (0.0-1.3); Monocytes % 8.7 %; Neutrophils # 12.6 K/mcL (1.6-8.9); Nucleated Red Blood Cells 0.1 /100 WBC (0); Platelet Count 446 K/mcL (140-400); Red Blood Count 2.62 M/mcL (4.19-5.50); Red Cell Distribution Width 17.6 % (11.5-14.5); Segmented Neutrophils % 69.8 %; White Blood Count 18.1 K/mcL (4.3-11.1)
[2018-10-15 04:10] LABS: BUN/Creatinine Ratio 26 (6-26); Blood Urea Nitrogen 25 mg/dL (8-23); Calcium 8.5 mg/dL (8.6-10.3); Carbon Dioxide 39 mEq/L (23-29); Chloride 97 mEq/L (98-107); Glucose 192 mg/dL (70-105); Magnesium 2.4 mg/dL (1.6-2.6); Osmolality,Calculated 300 (280-300); Potassium 3.8 mEq/L (3.5-5.1); Sodium 140 mEq/L (136-145); eGFR For African Americans > 60 (> 60); eGFR For Non-African Americans > 60 (> 60)
[2018-10-15] MEDS: *HR* Heparin 5,000 UNIT/ML VIAL SQ SCH (04:36)
[2018-10-15 07:28] LABS: Alanine Aminotransferase 81 Units/L (7-52); Albumin 2.5 g/dL (3.5-5.7); Albumin/Globulin Ratio 1.1 (1.1-2.2); Alkaline Phosphatase 179 Units/L (34-104); Aspartate Amino Transferase 70 Units/L (13-39); Bilirubin,Direct 1.1 mg/dL (0.0-0.2); Bilirubin,Indirect 0.8 mg/dL (0.0-1.2); Bilirubin,Total 1.9 mg/dL (0.3-1.0); Globulin 2.3 g/dL (2.4-3.5); Total Protein 4.8 g/dL (6.4-8.9)
[2018-10-15] MEDS: Budesonide Neb 0.25 MG/2 ML IH SCH (07:29)
[2018-10-15 07:52] VITALS: BP 99/53
[2018-10-15] MEDS: Furosemide 20 MG/2 ML VIAL IVP SCH (08:36)
[2018-10-15] MEDS: Pantoprazole 40 MG VIAL IVP SCH (08:36)
[2018-10-15] MEDS: Insulin DETEMIR 100 UNIT/ML X5UNITS SQ SCH (08:36)
[2018-10-15] MEDS: Fluticasone Propionate Nasal 50 MCG/SPRAY BOTTLE NS SCH (08:38)
[2018-10-15] MEDS: Cholecalciferol (D-3) 1,000 UNIT (25MCG) TABLET PO SCH (08:38)
[2018-10-15] MEDS: Fluconazole 200 MG/100 ML 200 MG/100 ML BAG IVPB SCH (15:18)
== END 2018-10-15 17:19 | disposition hospice, inpatient (51) | DRG 408 ==
LOC: EMEROOARM 20:25 → 3ANU 20:25 → SUATTDRO 10-01 01:53 → 3ANU 10-01 02:39 → SUATTDRO 10-01 03:46 → ICNU 10-02 21:18 → 2NNU 10-06 18:20 → 2NENU 10-08 10:41
PROVIDERS: ADMIT Internal Medicine; ATTEND Internal Medicine
PROC: ENDOEUS (2018-10-02 13:00)